=== PATIENT | male | born 1985 | race Caucasian/White ===

== ENCOUNTER 2017-11-24 12:29 | Emergency (ER) | payer SELFPAY ==
[2017-11-24] MEDS ORDERED: Diphtheria,Pertussis(Acell),Tetanus Vaccine 0.5 ML Syringe IM ONE (12:33)
[2017-11-24] MEDS ORDERED: Lidocaine 1% 20 ML MDV INJECT ONE (12:44)
[2017-11-24] MEDS ORDERED: Bacitracin/Neomycin/Polymyxin B Oint 0.9 GM U/D Packet TOP ONE (13:07)
--- NOTE | 2017-11-24 13:17 | EDM.PDOC ---
ED HPI GENERAL MEDICAL PROBLEM - General Chief Complaint: Laceration Stated Complaint: R HAND LACERATION Time Seen by Provider: 11/24/17 12:40 Source of Information: Reports: Patient History Limitations: Reports: No Limitations - History of Present Illness Onset: Today, Sudden Location: Reports: Lower Extremity, Right Quality: Reports: Sharp Severity: Mild (patient reports he lacerated his hand while changing a tire) - Related Data Allergies Allergy/AdvReac Type Severity Reaction Status Date / Time No Known Allergies Allergy Verified 11/24/17 12:29 Home Meds: Home Meds Escitalopram [Lexapro] 10 mg PO BID 11/24/17 [History] QUEtiapine [SEROquel] 25 mg PO BEDTIME PRN 11/24/17 [History] risperiDONE 2 mg PO DAILY 11/24/17 [History] Past Medical History - Past Surgical History GI Surgical History: Reports: Bariatric Procedure Other GI Surgeries/Procedures: GASTRIC BYPASS Social & Family History - Family History Family Medical History: Noncontributory - Tobacco Use Smoking Status *Q: Current Every Day Smoker Years of Tobacco use: 16 Packs/Tins Daily: 1 - Recreational Drug Use Recreational Drug Use: No ED ROS GENERAL - Review of Systems Review Of Systems: See Below Skin: Reports: Other (reports laceration to RIGHT hand between thumb and forefinger. denies other wounds, trauma) ED EXAM, SKIN/RASH Exam: See Below Exam Limited By: No Limitations General Appearance: Alert, WD/WN, No Apparent Distress Respiratory/Chest: No Respiratory Distress Cardiovascular: Normal Peripheral Pulses, Regular Rate, Rhythm Peripheral Pulses: 2+: Radial (L), Radial (R) Extremities: Other (2 cm laceration between the thumb and and index finger. skin otherwise without acute findings. cms intact throughout hand) Skin: Warm, Dry, Other (see extremities) ED SKIN PROCEDURES - Laceration/Wound Repair Right Hand Lac/Wound length In cm: 2 Appearance: Superficial Distal NVT: Neuro & Vascular Intact Anesthetic Type: Local Local Anesthesia - Lidocaine (Xylocaine): 1% Plain Local Anesthetic Volume: 5cc Skin Prep: Chlorhexidine (Hibiciens) Exploration/Debridement/Repair: Wound Explored, Explored to Base, No Foreign Material Found Closed with: Sutures Suture Size: 4-0 # of Sutures: 5 Suture Type: Interrupted, Simple, Other (ethilon) Sterile Dressing Applied: Provider Tetanus Status Addressed: Yes Course - Vital Signs Last Recorded V/S: Last Vital Signs Temp 36.6 C 11/24/17 12:31 Pulse 85 11/24/17 12:31 Resp 18 11/24/17 12:31 BP 114/55 L 11/24/17 12:31 Pulse Ox 100 11/24/17 12:31 - Orders/Labs/Meds Orders: Active Orders 24 hr Category Date Time Status Vaccines to be Administered [RC] PER UNIT ROUTINE Care 11/24/17 12:33 Active Meds: Medications Discontinued Medications Generic Name Dose Route Start Last Admin Trade Name Freq PRN Reason Stop Dose Admin Diphtheria/Tetanus/Acell Pertussis 0.5 ml 11/24/17 12:33 11/24/17 12:43 Adacel IM 11/24/17 12:34 0.5 ml .ONCE ONE Administration Lidocaine HCl 20 ml 11/24/17 12:44 11/24/17 12:48 Xylocaine 1% INJECT 11/24/17 12:45 20 ml ONETIME ONE Administration Neomycin/Polymyxin/Bacitracin 1 each 11/24/17 13:07 11/24/17 13:11 Triple Antibiotic Oint TOP 11/24/17 13:08 1 each ONETIME ONE Administration Departure - Departure Time of Disposition: 13:15 Disposition: Home, Self-Care 01 Condition: Good Clinical Impression: Laceration - Discharge Information *PRESCRIPTION DRUG MONITORING PROGRAM REVIEWED*: Not Applicable *COPY OF PRESCRIPTION DRUG MONITORING REPORT IN PATIENT YARA: Not Applicable Instructions: Laceration Care, Adult, [id number], Stitches, Timothy, or Adhesive Wound Closure, [id number] Referrals: PCP,None [Primary Care Provider] - Forms: ED Department Discharge - My Orders Last 24 Hours: My Active Orders 11/24/17 12:33 Vaccines to be Administered [RC] PER UNIT ROUTINE - Assessment/Plan Last 24 Hours: My Active Orders 11/24/17 12:33 Vaccines to be Administered [RC] PER UNIT ROUTINE Assessment:: Laceration. Easily repaired with 5 simple interrupted sutures. TdAP updated. Advised patient to rest, hydrate, OTC pain control PRN symptoms, fu with PCP in 7 days for suture removal, go to closest ER for change or new symptoms. Patient and friend at bedside report understanding and agreement. DC home stable in care of friend.
== END 2017-11-24 13:24 | disposition home or self-care (01) ==
LOC: CC.ED 12:29
DX: S61.411A Laceration without foreign body of right hand, initial encounter (principal); F17.210 Nicotine dependence, cigarettes, uncomplicated; Z23 Encounter for immunization; X58.XXXA Exposure to other specified factors, initial encounter
CPT/HCPCS: 12001; 90471; 90715; 99282

== ENCOUNTER 2024-11-16 19:32 | Emergency (ER) | payer OTHER ==
[2024-11-16] MEDS: Take Home: Cyclobenzaprine 10 MG Tab, 4 Tab Pack PO ONE (21:50)
== END 2024-11-16 22:04 | disposition home or self-care (01) ==
LOC: CC.ED 19:32
DX: S16.1XXA Strain of muscle, fascia and tendon at neck level, initial encounter (principal); S00.03XA Contusion of scalp, initial encounter; S20.212A Contusion of left front wall of thorax, initial encounter; S90.31XA Contusion of right foot, initial encounter; Z91.041 Radiographic dye allergy status; Z79.51 Long term (current) use of inhaled steroids; Z79.899 Other long term (current) drug therapy; W18.2XXA Fall in (into) shower or empty bathtub, initial encounter; Y93.89 Activity, other specified
CPT/HCPCS: 70450; 71250; 72125; 73630-RT; 96372; 99284; A9270-GY; J1171